=== PATIENT | male | born 1990 | race Caucasian/White ===

== ENCOUNTER 2025-01-26 11:46 | Emergency (ER) | payer MEDICAID ==
[~2025-01-26] VITALS: Ht 170.2 cm; Wt 80.0 kg
[2025-01-26 12:16] VITALS: TEMP 98.3
[2025-01-26 13:14] LABS: CALCIUM, TOTAL 7.8 mg/dL (8.8-10.5); CREATININE 0.78 mg/dL (0.60-1.30); GLOMERULAR FILTR. RATE CALC > 60 mL/min (>60); GLUCOSE,RANDOM 113 mg/dL (70-110); SODIUM SERUM 144 mmol/L (136-145); UREA NITROGEN, BLOOD 3 mg/dL (7-18)
[2025-01-26 13:19] LABS: ASPARTATE AMINOTRANSFERASE 74.0 U/L (15-37); PLATELET COUNT (AUTO) 160 K/uL (150-450); RED BLOOD CELL COUNT(AUTO) 4.76 MIL/uL (4.50-5.90); RED CELL DISTRIBUTION WIDTH 14.0 % (11.5-14.5); TOTAL PROTEIN, SERUM 7.5 g/dL (6.4-8.2); WHITE BLOOD COUNT (AUTO) 4.6 K/uL (4.5-11.0)
[2025-01-26 13:37] LABS: ALCOHOL, BLOOD (SERUM) 338.0 mg/dL (0-10)
[2025-01-26 16:19] VITALS: BP 150/88; PULSE 96; RESP 14; O2SAT 97
== END 2025-01-26 16:21 | disposition home or self-care (01) ==
LOC: EMS 11:56
DX: K70.30 Alcoholic cirrhosis of liver without ascites (principal); F10.129 Alcohol abuse with intoxication, unspecified; Y90.8 Blood alcohol level of 240 mg/100 ml or more
CPT/HCPCS: 99283; 80048; 80076; 83690; 85025; 36415; G0480